=== PATIENT | male | born 1950 | race Caucasian/White ===

== ENCOUNTER 2019-11-01 11:00 | Emergency (ER) | payer OTHER, MEDICARE ==
[~2019-11-01] VITALS: Ht 190.5 cm; Wt 122.5 kg
[~2019-11-01 11:00] MED LIST: AMLO5 PO; ASPI325; ATOR40TA PO; BACL10 PO; FURO20 PO; HYDR1TAB94 PO; Hytrin2 MG PO; INDO25 PO; LISINOPRIL; LOSA50 PO; NAPR250 PO; OXYACE5T PO; PRAM.5 PO; SERT50 PO; TRAM50 PO; VITAMINS
[2019-11-01 11:21] LABS: BASOPHILS ABSOLUTE AUTO 0.04 K/mm3 (0.00-0.23); BASOPHILS PERCENT AUTO 0 % (0-2); EOSINOPHILS PERCENT AUTO 1 % (0-6); Hematocrit 45.6 % (37.0-53.0); IMMATURE GRAN ABSOLUTE AUTO 0.06 K/mm3 (0.00-0.10); IMMATURE GRAN PERCENT AUTO 1 % (0-1); LYMPHOCYTES ABSOLUTE AUTO 2.39 K/mm3 (0.84-5.20); LYMPHOCYTES PERCENT AUTO 25 % (21-46); MONOCYTES ABSOLUTE AUTO 0.71 K/mm3 (0.16-1.47); MONOCYTES PERCENT AUTO 7 % (4-13); Mean Corpuscular HGB 32.8 pg (26.0-34.0); Mean Corpuscular HGB Conc 32.9 g/dL (31.5-36.5); Mean Corpuscular Volume 100 fL (80-100); Mean Platelet Volume 9.5 fL (9.1-12.4); NEUTROPHILS ABSOLUTE AUTO 6.29 K/mm3 (1.96-9.15); NEUTROPHILS PERCENT AUTO 66 % (41-73); Platelet Count 231 K/mm3 (150-400); RDW Coefficient Variation 12.6 % (11.7-14.2); RDW Standard Deviation 46.3 fL (35.1-46.3); Red Blood Cell Count 4.58 M/mm3 (4.30-5.90); White Blood Cell Count 9.59 K/mm3 (4.00-11.30)
[2019-11-01 11:43] LABS: Alanine Aminotransfer (ALT/SGP 21 U/L (12-78); Albumin, Blood 3.5 g/dL (3.4-5.0); Alk Phos 94 U/L (50-136); Anion Gap 12 mmol/L (6-16); Aspartate Aminotrans (AST/SGOT 18 U/L (12-37); Bilirubin, Total 0.4 mg/dL (0.1-1.0); Blood Urea Nitrogen 14 mg/dL (8-24); Bun/Creatinine Ratio 15.9 (12.0-20.0); CO2, Blood 19 mmol/L (21-32); Chloride, Blood 111 mmol/L (98-108); Creatinine, Blood 0.88 mg/dL (0.60-1.20); Dilantin (Phenytoin), Total 5.6 ug/mL (10.0-20.0); Globulin, Blood 3.5 g/dL (2.2-4.0); Glomerular Filtration Rate >60 (60-); Glucose, Blood 138 mg/dL (70-99); Potassium, Blood 3.4 mmol/L (3.5-5.5); Sodium, Blood 142 mmol/L (136-145)
[2019-11-01] MEDS ORDERED: PHENY100ER PO (13:42)
[2019-11-01] MEDS ORDERED: PRED5 PO (13:45)
[2019-11-01] MEDS ORDERED: POTA10T PO (13:45)
[2019-11-01] MEDS ORDERED: XARELTO20 MG PO (13:46)
[2019-11-01] MEDS ORDERED: FLOMAX0.4 MG PO (13:46)
[2019-11-01] MEDS ORDERED: ZYTIGA500 MG PO (13:47)
[2019-11-01] MEDS ORDERED: Flonase 0.05% N16 GM (13:48)
[2019-11-01] MEDS ORDERED: ATOR20 PO (13:48)
[2019-11-01] MEDS ORDERED: LOSARTAN POTAS100 MG PO (13:49)
== END 2019-11-01 13:51 | disposition home or self-care (01) ==
LOC: ER 11:00
PROVIDERS: Emergency Medicine
DX: G40.409 Other generalized epilepsy and epileptic syndromes, not intractable, without status epilepticus (principal); S00.81XA Abrasion of other part of head, initial encounter; R89.2 Abnormal level of other drugs, medicaments and biological substances in specimens from other organs, systems and tissues; I10 Essential (primary) hypertension; F32.9 Major depressive disorder, single episode, unspecified; F17.210 Nicotine dependence, cigarettes, uncomplicated; Z79.899 Other long term (current) drug therapy
CPT/HCPCS: 70450; 80053; 80185; 85025; 96365; 99285-25; Q2009